=== PATIENT | female | born 1975 | race Caucasian/White ===

== ENCOUNTER 2020-02-06 01:13 | Outpatient (CLI) | payer OTHER, SELFPAY ==
--- NOTE | 2020-02-06 13:18 | DI.MAMMO_ITS ---
EXAM: MAMMO SCREENING CLINICAL HISTORY: screening,Z12.39 TECHNIQUE: Mammograms were interpreted according to the usual protocol including computer analysis w fishfish[employer] CAD system, tomosynthesis and C-view imaging. COMPARISON: 2017 FINDINGS: The breasts are composed of heterogeneously dense fibroglandular densities, Breast Density category C . No suspicious masses or suspicious microcalcifications are seen. No skin thickening or abnormal axillary lymph nodes are seen. There has been no significant change from prior exams. IMPRESSION: BI-RADS Category 1, Negative mammogram. Yearly screening mammography is recommended. Breast Density Category C, heterogeneously Dense. The mammogram demonstrates the patient's breast tissue is dense. Dense breast tissue is very common a nd is not abnormal but dense breast tissue can make it harder to find cancer on a mammogram. Also, de nse breast tissue may increase breast cancer risk. This information about the result of the mammogram report was provided to the patient to raise their awareness. Use this report when you speak with the patient about their risks for breast cancer, which includes their family history. At that time, you may recommend additional screening tests (Ultrasound or MRI) as they might be useful based on their r isk. A negative radiographic report should not delay biopsy if a dominant or clinically suspicious mass is present. Up to ten percent of cancers are not identified on mammography. A negative report may reinforce clinical impression. Adenosis and dense breasts may obscure an underlying neoplasm. False positive reports average 6 to 10%.
== END 2020-02-06 01:33 ==
PROVIDERS: PCP Legal Medicine; Visit Provider Nurse Practitioner Women's Health
DX: Z12.31 Encounter for screening mammogram for malignant neoplasm of breast (principal)
CPT/HCPCS: 77063; 77067

== ENCOUNTER 2021-04-01 01:59 | Outpatient (CLI) | payer OTHER, SELFPAY ==
--- NOTE | 2021-04-01 07:30 | DI.MAMMO_ITS ---
Exam(s) MAMMO SCREENING EXAM: MAMMO SCREENING CLINICAL HISTORY: screening,z12.39. TECHNIQUE: Bilateral full field digital CC and MLO mammographic images were obtained with 3D tomosyn thesis and utilizing computer aided detection (CAD). COMPARISON: Prior mammograms dating back to 2017, the most recent being 2019. FINDINGS: The fibroglandular tissue pattern is again noted be dense, this somewhat decreasing the sensitivity o f the mammogram for finding hidden underlying lesions. There are no CAD designations. There are no obvious new spiculated masses nor malignant appearing microcalcification groups. There is no significant architectural distortion nor skin thickening-retraction. IMPRESSION: Dense bilateral fibroglandular tissue. No obvious radiographic evidence of malignancy nor significan t change compared to prior studies listed above. BI-RADS Category 1 - Negative Breast Density - Category C - Heterogeneously dense Breast density Category C or D implies that the patient has dense breast tissue. Dense breast tissue can make it harder to find cancer on a mammogram. Dense breast tissue is also associated with an incr eased risk of breast cancer. This information about the result of the mammogram report was provided to the patient to raise their awareness. Use this report when you speak with the patient about their risks for breast cancer, which includes their family history. At that time, you may recommend additional screening tests (Ultrasoun d or MRI) as these tests may add significant information. A negative radiographic report should not delay biopsy if a dominant or clinically suspicious mass is present. Up to ten percent of cancers are not identified on mammography. A negative report may reinforce clinical impression. Adenosis and dense breasts may obscure an underlying neoplasm. False positive reports average 6 to 10%. Patient will receive a letter notifying them of these results.
== END 2021-04-01 02:19 ==
PROVIDERS: PCP Legal Medicine; Visit Provider Nurse Practitioner Women's Health
DX: Z12.31 Encounter for screening mammogram for malignant neoplasm of breast (principal); R92.8 Other abnormal and inconclusive findings on diagnostic imaging of breast
CPT/HCPCS: 77063; 77067

== ENCOUNTER 2022-06-02 10:45 | Outpatient (REF) | payer OTHER, SELFPAY ==
--- NOTE | 2022-06-02 10:15 | PAPFT_PTH ---
PATIENT: Ketty Finley LOC: [facility] U#:[id number] AGE/SX: 47/F ROOM: RE06/02/[address]: Heydi Chapman NP : 1975 BED: DIS: 06/02/2022 SPEC #: [id number] RECD: 06/02/22 12:49 STATUS: SHARRIMoody REYvon #: [id number] EUGENIA: 06/02/22 10:[address]: Heydi Chapman NP DEPT: PENDING SALE TO [facility] Cytology RECD BY: Emily Gabriel ENTERED: 06/02/22 12:50 SP TYPE: PAPFT OTHR DR: Marcela Jimenez Tissues: 1 - CX/ENDOCX FOR PAP SMEARS Procedures: PAP THIN PREP/UVM Screening HPV DNA PROBE Comments: [id number]
== END 2022-06-02 10:46 | disposition home or self-care (01) ==
LOC: LBN 10:45
PROVIDERS: PCP Legal Medicine; Visit Provider Nurse Practitioner Women's Health
DX: Z12.4 Encounter for screening for malignant neoplasm of cervix (principal); Z11.51 Encounter for screening for human papillomavirus (HPV)
CPT/HCPCS: 88142; 87624

== ENCOUNTER 2022-06-30 01:58 | Outpatient (CLI) | payer OTHER, SELFPAY ==
--- NOTE | 2022-06-30 08:00 | DI.MAMMO_ITS ---
Exam(s) MAMMO SCREENING EXAM: MAMMO SCREENING CLINICAL HISTORY: screening TECHNIQUE: Bilateral full field digital CC and MLO mammographic images were obtained with 3D tomosyn thesis and utilizing computer aided detection (CAD). COMPARISON: Available for comparison. FINDINGS: Masses/Architectural Distortion: None seen. Microcalcifications: No suspicious pleomorphic-type are seen. Skin Thickening/Nipple Retraction: None. IMPRESSION: 1. No significant interval change with no specific features of malignancy noted. 2. Unless there is more urgent need, screening mammography is recommended, as per [employer] guidelines. BI-RADS Category 1 - Negative Breast Density - Category C - Heterogeneously dense Breast density category C or D implies that the patient has dense breast tissue. Dense breast tissue is very common and is not abnormal but dense breast tissue can make it harder to find cancer on a ma mmogram. Also, dense breast tissue may increase their breast cancer risk. This information about the result of the mammogram report was provided to the patient to raise their awareness. Use this report when you speak with the patient about their risks for breast cancer, which includes their family hist ory. At that time, you may recommend for more screening tests (Ultrasound or MRI) as they might be us eful based on their risk. A negative radiographic report should not delay biopsy if a dominant or clinically suspicious mass is present. Up to ten percent of cancers are not identified on mammography. A negative report may reinforce clinical impression. Adenosis and dense breasts may obscure an underlying neoplasm. False positive reports average 6 to 10%. Patient will receive a letter notifying them of these results.
== END 2022-06-30 02:18 ==
LOC: DI 01:58
PROVIDERS: PCP Legal Medicine; Visit Provider Nurse Practitioner Women's Health
DX: Z12.31 Encounter for screening mammogram for malignant neoplasm of breast (principal)
CPT/HCPCS: 77063; 77067

== ENCOUNTER → 2023-09-15 00:08 | Outpatient (CLI) | payer OTHER, SELFPAY ==
--- NOTE | 2023-09-15 13:04 | DI.MAMMO_ITS ---
Exam(s) MAMMO SCREENING EXAM: MAMMO SCREENING CLINICAL HISTORY: screening TECHNIQUE: Bilateral full field digital CC and MLO mammographic images were obtained with 3D tomosyn thesis and utilizing computer aided detection (CAD). COMPARISON: Available for comparison. FINDINGS: Masses/Architectural Distortion: None seen. Microcalcifications: No suspicious pleomorphic-type are seen. Skin Thickening/Nipple Retraction: None. IMPRESSION: 1. No significant interval change with no specific features of malignancy noted. 2. Unless there is more urgent need, screening mammography is recommended, as per [employer] guidelines. BI-RADS Category 1 - Negative Breast Density - Category C - Heterogeneously dense Breast density category C or D implies that the patient has dense breast tissue. Dense breast tissue is very common and is not abnormal but dense breast tissue can make it harder to find cancer on a ma mmogram. Also, dense breast tissue may increase their breast cancer risk. This information about the result of the mammogram report was provided to the patient to raise their awareness. Use this report when you speak with the patient about their risks for breast cancer, which includes their family hist ory. At that time, you may recommend for more screening tests (Ultrasound or MRI) as they might be us eful based on their risk. A negative radiographic report should not delay biopsy if a dominant or clinically suspicious mass is present. Up to ten percent of cancers are not identified on mammography. A negative report may reinforce clinical impression. Adenosis and dense breasts may obscure an underlying neoplasm. False positive reports average 6 to 10%. Patient will receive a letter notifying them of these results.
== END ==
PROVIDERS: PCP Legal Medicine; Visit Provider Nurse Practitioner Women's Health
DX: Z12.31 Encounter for screening mammogram for malignant neoplasm of breast (principal)
CPT/HCPCS: 77063; 77067

== ENCOUNTER 2024-03-07 10:41 | Day surgery (SDC) | payer OTHER, SELFPAY ==
[2024-03-07 10:45] VITALS: BP 116/81; PULSE 81; RESP 18; TEMP 36.9; O2SAT 100
[2024-03-07 11:25] VITALS: BMI 24.5
--- NOTE | 2024-03-07 11:25 | W.ANESPRE ---
General Info Date of Service Date Performed: 03/07/24 Height: 5 ft 6 in Weight: 69 kg Body Mass Index (BMI): 24.5 Surgical Procedure: Operation Date: 03/07/24 13:20 Proposed Procedure Side Surgeon p Nathan Castellanos MD Meds Allergies and Home Medications Allergies Allergy/AdvReac Type Severity Reaction Status Date / Time No Known Drug Allergies Allergy Other (See Verified 03/07/24 11:01 Comment) Home Medication ?Medication ?Instructions ?Recorded cholecalciferol (vitamin D3) 50 50 mcg PO DAILY PRN 06/02/22 mcg (2,000 unit) capsule Current Visit Medications: Current Medications Generic Name Dose Route Start Last Admin Trade Name Freq PRN Reason Stop Dose Admin IV Miscellaneous Supplies 1 each 03/07/24 06:00 Iv Access IV 03/07/24 23:59 DIRECTED ROMERO Sodium Chloride 0 ml 03/07/24 06:00 Normal Saline Flush 10 Ml Syr IV 03/07/24 23:59 PRN PRN Sodium Chloride 0 ml 03/07/24 06:00 Normal Saline 10 Ml Vial IJ 03/07/24 23:59 DIRECTED PRN Sterile Water 0 ml 03/07/24 06:00 Water,Injection,Sterile 10 Ml Vial IJ 03/07/24 23:59 DIRECTED PRN PFSH Medical History Medical History (Updated 03/07/24 @ 11:41 by Germán Castellanos MD) Hx of fracture of fibula Surgical History Surgical History Hx of wisdom tooth extraction Tobacco Smoking/Tobacco Use Status: Never Passive smoking exposure: No Second hand exposure: No Alcohol Alcohol Intake: current Alcohol intake frequency: holidays/special occasions only Substance Use Substance use: Never Substance use type: does not use Prental History History 3 Para 3 Hx # Term Pregnancies Multiple births Hx # Pregnancies Ectopic pregnancies AB induced Hx Number of Living Children AB spontaneous Vital Signs and Lab Results Vital Signs Most Recent Vital Signs in EMR: Most Recent Vital Signs Temp Pulse Resp BP Pulse Ox 36.9 C 81 18 116/81 100 03/07/24 10:45 03/07/24 10:45 03/07/24 10:45 03/07/24 10:45 03/07/24 10:45 Lab Results Blood Type / Crossmatch: No Data to Display Complete Blood Count: No Data to Display Complete Metabolic Panel: No Data to Display Liver Function Panel: No Data to Display Coagulation Panel: No Data to Display Cardiac Panel: No Data to Display Arterial Blood Gas: No Data to Display Venous Blood Gas: No Data to Display Pancreas Panel: No Data to Display Thyroid Panel: No Data to Display Infectious Disease: No Data to Display Blood Cultures: No Data to Display Toxicology Panel: No Data to Display Panel: No Data to Display Anesthesia Assessment and Plan Anesthesia History Personal History: No History of General Anesthesia Family History: No Family History of Anesthesia Complications Exercise Tolerance Exercise Tolerance: Metabolic Equivalents>4 Pertinent Negatives Pertinent Negatives: No Symptoms of GERD Cardiac & Pulmonary Exam Cardiac Exam: Normal S1/S2 Heart Sounds Pulmonary Exam: Clear Bilateral Breath Sounds Implantable Cardiac Device Does patient have a Pacemaker or an ICD?: No Airway Exam Known Difficult Airway: No Mallampati Class: 2 Mouth Opening: Normal (> 3cm) Thyromental Distance: Less than 3 cm Neck Range of Motion: Full ROM Neck Circumference: Normal Teeth Condition: Normal Dentition ASA Classification ASA Score: ASA 1 Emergency Case?: No NPO Status NPO Status: NPO Clears >2 hours, Solids >8 hours Status Status: Negative HCG Anesthesia Plan Resuscitation Status: Full Code Anesthesia Technique: General Anesthesia Airway Planned: Natural Airway Monitors Used: Standard Monitors
--- NOTE | 2024-03-07 11:27 | W.SURGCON ---
Date of service: 03/07/24 Time of Service: 11:27 Assessment and Plan Assessment and plan (1) Colon cancer screening: Status: Acute Assessment and plan: 49-year-old woman with no symptoms, baseline risk, due for her for screening colonoscopy. Overall plan: Colonoscopy History of Present Illness Narrative: Ketty is a healthy 49-year-old woman who has never had a colonoscopy. She has no symptoms. An isolated grandparent had colon cancer late in life. She has never had intra-abdominal surgery. PFSH All Active Problems (Updated 03/07/24 @ 11:41 by Germán Castellanos MD) Colon cancer screening (Acute) Medical History (Updated 03/07/24 @ 11:41 by Germán Castellanos MD) Hx of fracture of fibula Surgical History Hx of wisdom tooth extraction Family History Grandmother Breast cancer Father AML (acute myeloid leukemia) MDS (myelodysplastic syndrome) Other Heart disease Personal history of malignant neoplasm Social History Smoking/Tobacco Use Status: Never Second Hand Exposure: No Smoking risk assessment performed?: Yes Alcohol Intake: current Alcohol Intake frequency: holidays/special occasions only Drug use: Never Substance use type: does not use Housing: house current occupation: [employer] Sexually active: Yes Do you think of yourself as: straight/heterosexual Current gender identity: female What type of physical activity do you participate in: regular exercise Seatbelt use: always Do you feel safe at home: Yes Do you feel safe in your relationship?: Yes Female Reproductive History Menstrual Duration of menses: 3-5 days control method: other (Partner with vasectomy) History History 3 Para 3 Hx # Term Pregnancies Multiple births Hx # Pregnancies Ectopic pregnancies AB induced Hx Number of Living Children AB spontaneous Exam Narrative Exam Narrative: Gen: Non-toxic, comfortable and interactive Neuro: Alert and oriented x3 Psych: Good mood and affect. Good insight and understanding into condition. Chest: Non-labored breathing, no wheezing, no visible shortness of breath. Heart: Regular Results Last Vital Signs Temp 98.4 F 03/07/24 10:45 Pulse 81 03/07/24 10:45 Resp 18 03/07/24 10:45 BP 116/81 03/07/24 10:45 Pulse Ox 100 03/07/24 10:45
[2024-03-07] MEDS: Normal Saline Flush 10 ML SYR IV (11:28)
--- NOTE | 2024-03-07 11:41 | W.COLOREPORT ---
Date of service: 03/07/24 Time of Service: 11:41 Colonoscopy Report Procedure Description: PROCEDURES PERFORMED: 1. Colonoscopy with cold forceps polypectomy x3 2. snare polypectomy x 1 PREOPERATIVE DIAGNOSIS: Screening colonoscopy POSTOPERATIVE DIAGNOSIS: Colon polyps, minimal sigmoid diverticular disease, mild grade 1 internal hemorrhoids SURGEON: Toni Castellanos MD INDICATION FOR PROCEDURE: the patient is a 49-year-old woman without any symptoms, no significant family history (isolated grandparent late in life had colon cancer) due for her for screening colonoscopy. FINDINGS: In the ascending colon a small 2 to 3 mm polyp was removed with cold forceps technique. In the distal transverse/proximal descending colon a 3-5 mm sessile polyp was removed with hot snare technique. In the sigmoid colon a 2-3 mm hyperplastic?appearing polyp was removed cold forceps technique. In the rectum another flat, 2-3 mm polyp was removed with cold forceps technique. In the sigmoid colon there are a couple tiny, punctate/early diverticular disease pockets starting. The disease is overall very minimal. In the rectum there is minimal grade 1 internal hemorrhoid disease present. SURVEILLANCE interval/FOLLOW-UP: Pending path results of the polyps. I suspect most of the polyps, if not all, will be hyperplastic. Probably a 7-10 year repeat colonoscopy will be acceptable. SPECIMENS: Yes EBL: Minimal COMPLICATIONS: None QUALITY of prep: Excellent Procedure in detail: The patient gave written consent and was in agreement with the indications, the potential risks as well as the benefits of the procedure. They were taken to the endoscopy suite and laid in the left lateral decubitus position. A timeout was performed and anesthesia was administered which was tolerated well. I started the procedure. Digital rectal and visual examination was performed and grossly within normal limits. A well-lubricated flexible colonoscope was then introduced and passed all the way to the cecum identified by the ileocecal valve and the appendiceal orifice. Her colon was noticeably quite redundant throughout. The scope was then slowly withdrawn with the above-noted findings. The patient tolerated the procedure well and was taken to the PACU in hemodynamically stable condition.
--- NOTE | 2024-03-07 11:42 | W.PM.DSUDISC ---
Date of service: 03/07/24 Time of Service: 11:42 Discharge Plan Disposition Patient Disposition: Home Condition: Good Discharge Details Attending Provider: Germán Castellanos Primary Care Provider: Unknown,Unknown Home Meds and New Rx's Prescriptions: No Action cholecalciferol (vitamin D3) 50 mcg (2,000 unit) capsule 50 mcg PO DAILY PRN Discharge Instructions Additional Instructions: FINDINGS: Some small polyps were found today and removed. They are nothing to worry about. This is why we do the colonoscopies. They get tested in pathology labs and we will let you know the results in a few weeks. Those results will dictate when your next colonoscopy should be done. Some mild/minimal diverticular disease AKA diverticulosis, was seen today. This is extremely common, benign and nothing needs to be done about it. Also seen today with some very mild hemorrhoid disease. This is also extremely common, benign and nothing needs to be done about it. Probably you should do another colonoscopy in 7 to 10 years and we will confirm this after the biopsy results come back. Activity:: Activity as Tolerated Diet:: As Tolerated DS: Diagnosis Discharge Diagnosis (1) Colon cancer screening: Status: Acute
--- NOTE | 2024-03-07 12:03 | BOWEL_PTH ---
PATIENT: Ketty Finley LOC: [facility] U#:[id number] AGE/SX: 49/F ROOM: RE03/07/[address]: Germán Castellanos : 1975 BED: DIS: 03/07/2024 SPEC #: [id number] RECD: 03/07/24 16:50 STATUS: JUVE REQ #: [id number] EUGENIA: 03/07/24 12:[address]: Germán Castellanos DEPT: Surgical Specimen RECD BY: Emily Gabriel ENTERED: 03/07/24 16:50 SP TYPE: Bowel OTHR DR: Unknown,Unknown Tissues: 1 - BIOPSY BOWEL 2 - BIOPSY BOWEL 3 - BIOPSY BOWEL 4 - BIOPSY BOWEL Procedures: GROSS AND MICRO LEVEL 4 Comments: [id number]
[2024-03-07 12:25] VITALS: BP 98/69; PULSE 74; RESP 16; TEMP 36.5; O2SAT 100
--- NOTE | 2024-03-07 12:40 | W.ANESPOSTOP ---
Postoperative Evaluation Date, Time and Location Date Performed: 03/07/24 Time Performed: 12:40 Patient Location: Day Surgery Unit Vital Signs Most Recent Imported Vital Signs: Most Recent Vital Signs Temp Pulse Resp BP Pulse Ox 36.5 C 74 16 98/69 L 100 03/07/24 12:25 03/07/24 12:25 03/07/24 12:25 03/07/24 12:25 03/07/24 12:25 Pain Score Most Recent Pain Score: Most Recent Pain Score Pain Level 0 03/07/24 12:25 Assessment Mental Status: Awake (Alert & Oriented to Patient Baseline) Airway and Respiratory Function: Patent airway with normal (patient baseline) respiratory exam Cardiovascular Function: Hemodynamically Stable Hydration Status: Adequately Hydrated Nausea & Vomiting: No Nausea or Vomiting Pain: Pt. Denies Any Pain Peripheral Nerve Block: Patient did not receive a nerve block
[2024-03-07 12:55] VITALS: BP 106/77; PULSE 71; RESP 16; TEMP 36.6; O2SAT 100
== END 2024-03-07 13:05 | disposition home or self-care (01) ==
PROVIDERS: Visit Provider Student in an Organized Health Care Education/Training Program
PROC: 0DJD8ZZ Inspection of Lower Intestinal Tract, Via Natural or Artificial Opening Endoscopic (ICD-10-PCS; CPT 45378; principal; 2024-03-07 13:15)
DX: Z12.11 Encounter for screening for malignant neoplasm of colon (principal); D12.3 Benign neoplasm of transverse colon; K64.0 First degree hemorrhoids; K57.30 Diverticulosis of large intestine without perforation or abscess without bleeding
CPT/HCPCS: 45385; 45380; 00123; 81025; 88305; J2704